=== PATIENT | male | born 1995 | race Hispanic/Latino ===

== ENCOUNTER → 2019-10-28 | Outpatient (CLI) | payer OTHER ==
--- NOTE | 2019-10-28 10:55 | REP ---
MAXILLOFACIAL CT STUDY WITHOUT CONTRAST: HISTORY: Chronic sinusitis. Rhinosinusitis times [address] FINDINGS: The maxillary sinuses are clear. No mucosal changes are seen in the ethmoid or sphenoid sinuses. The frontal sinuses are similarly clear. Mastoid aeration is normal and symmetric. Middle ear cavities appear aerated. Bony nasal septum deviates slightly to the left with a very small beak. Nasal turbinate soft tissues are unremarkable. No nasal polyp is seen. No intraorbital abnormality is seen. The visualized deep facial and intracranial soft tissues are unremarkable. On coronal images there is minimal mucosal thickening at the ostium of each ostiomeatal complex. IMPRESSION: There is minimal mucosal thickening in the ostial region of the OMCs bilaterally. Otherwise negative paranasal sinus CT. The sinuses themselves are clear. Electronically Signed by Tevin Love MD 10/28/2019 11:33 A
== END ==
LOC: M RAD 09:04
DX: J32.9 Chronic sinusitis, unspecified (principal)

== ENCOUNTER 2021-01-23 20:20 | Emergency (ER) | payer OTHER ==
[~2021-01-23] VITALS: Ht 172.7 cm; Wt 67.0 kg
[2021-01-23] MEDS ORDERED: antidepressant (20:40)
[2021-01-23 21:02] LABS: HEMATOCRIT 41.4 % (42.0-52.0); MEAN CORPUSCULAR HEMOGLOBIN 31.3 pg (27.0-33.0); MEAN CORPUSCULAR HGB CONC 33.8 g/dl (32.0-36.5); MEAN CORPUSCULAR VOLUME 92.4 fl (80.0-96.0); PLATELET COUNT, AUTOMATED 216 10^3/uL (150-450); RED BLOOD COUNT 4.48 10^6/uL (4.30-6.10); WHITE BLOOD COUNT 6.5 10^3/uL (4.0-10.0)
[2021-01-23 21:31] LABS: AMPHETAMINES LEVEL URINE NEGATIVE (NEGATIVE); BARBITURATES URINE NEGATIVE (NEGATIVE); BENZODIAZEPINES URINE NEGATIVE (NEGATIVE); CANNABINOIDS URINE POSITIVE (NEGATIVE); COCAINE METABOLITE URINE NEGATIVE (NEGATIVE); METHADONE URINE NEGATIVE (NEGATIVE); OPIATES URINE NEGATIVE (NEGATIVE); PHENCYCLIDINE URINE NEGATIVE (NEGATIVE)
[2021-01-23 21:40] LABS: ACETAMINOPHEN LEVEL < 2.0 UG/ML (10.0-30.0); ALBUMIN 4.5 GM/DL (3.2-5.2); ALT/SGPT 24 U/L (12-78); BILIRUBIN,DIRECT 0.4 MG/DL (0.0-0.2); BILIRUBIN,TOTAL 1.8 MG/DL (0.2-1.0); BLOOD UREA NITROGEN 8 MG/DL (7-18); CALCIUM LEVEL 9.2 MG/DL (8.5-10.1); CARBON DIOXIDE LEVEL 24 MEQ/L (21-32); CHLORIDE LEVEL 106 MEQ/L (98-107); CREATININE FOR GFR 0.85 MG/DL (0.70-1.30); ETHYL ALCOHOL (ETHANOL) 0.004 % (0.000-0.010); GLOMERULAR FILTRATION RATE > 60.0 (>60); GLUCOSE, FASTING 91 MG/DL (70-100); POTASSIUM SERUM 3.5 MEQ/L (3.5-5.1); SALICYLATE LEVEL < 1.7 MG/DL (5.0-30.0); SODIUM LEVEL 140 MEQ/L (136-145); THYROID STIMULATING HORMONE 0.898 uIU/ML (0.358-3.740); TOTAL PROTEIN 7.9 GM/DL (6.4-8.2)
[2021-01-24 00:41] LABS: RSV AMPLIFICATION NEGATIVE (NEGATIVE)
[2021-01-24 09:41] VITALS: BP 136/75
--- NOTE | 2021-01-24 20:49 | ECGEPIP ---
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
== END 2021-01-24 09:44 ==
LOC: M ED 20:20
DX: F33.9 Major depressive disorder, recurrent, unspecified (principal); F41.9 Anxiety disorder, unspecified

== ENCOUNTER 2021-04-25 03:33 | Inpatient (IN) | payer OTHER ==
[~2021-04-25] VITALS: Ht 170.2 cm; Wt 61.8 kg
[~2021-04-25 03:33] MED LIST: antidepressant
[2021-04-25] MEDS ORDERED: LORazepam 2 MG/ML VIAL IM ONE (03:50)
[2021-04-25] MEDS ORDERED: diphenhydrAMINE 50MG/ML VIAL (J1200) IM ONE (03:50)
[2021-04-25] MEDS ORDERED: HALOPERIDOL 5MG/ML VIAL (J1630 PER 1) IM ONE (03:50)
[2021-04-25] MEDS ORDERED: LORazepam 2 MG/ML VIAL As Ordered ONE (03:51)
[2021-04-25 04:11] LABS: BASO % 0.5 % (0.0-1.0); EOS # 0.1 10^3/uL (0.0-0.5); EOS % 1.7 % (0.0-3.0); HEMATOCRIT 38.1 % (42.0-52.0); LYMPH # 2.2 10^3/uL (1.5-5.0); LYMPH % 38.6 % (24.0-44.0); MEAN CORPUSCULAR HEMOGLOBIN 31.6 pg (27.0-33.0); MEAN CORPUSCULAR HGB CONC 34.1 g/dl (32.0-36.5); MEAN CORPUSCULAR VOLUME 92.7 fl (80.0-96.0); MONO # 0.5 10^3/uL (0.0-0.8); MONO % 8.3 % (2.0-8.0); NEUTROPHILS # 2.9 10^3/uL (1.5-8.5); NEUTROPHILS % 50.7 % (36.0-66.0); PLATELET COUNT, AUTOMATED 224 10^3/uL (150-450); RED BLOOD COUNT 4.11 10^6/uL (4.30-6.10); WHITE BLOOD COUNT 5.8 10^3/uL (4.0-10.0)
[2021-04-25 04:51] LABS: ACETAMINOPHEN LEVEL < 2.0 UG/ML (10.0-30.0); ALBUMIN 3.8 GM/DL (3.2-5.2); ALT/SGPT 22 U/L (12-78); BILIRUBIN,DIRECT 0.2 MG/DL (0.0-0.2); BILIRUBIN,TOTAL 0.8 MG/DL (0.2-1.0); BLOOD UREA NITROGEN 11 MG/DL (7-18); CALCIUM LEVEL 8.6 MG/DL (8.5-10.1); CARBON DIOXIDE LEVEL 22 MEQ/L (21-32); CHLORIDE LEVEL 110 MEQ/L (98-107); CPK CREATINE PHOSPHOKINASE 251 U/L (39-308); CREATININE FOR GFR 1.06 MG/DL (0.70-1.30); ETHYL ALCOHOL (ETHANOL) < 0.003 % (0.000-0.010); GLOMERULAR FILTRATION RATE > 60.0 (>60); GLUCOSE, FASTING 96 MG/DL (70-100); POTASSIUM SERUM 4.2 MEQ/L (3.5-5.1); SALICYLATE LEVEL < 1.7 MG/DL (5.0-30.0); SODIUM LEVEL 141 MEQ/L (136-145); THYROID STIMULATING HORMONE 0.496 uIU/ML (0.358-3.740); TOTAL PROTEIN 7.2 GM/DL (6.4-8.2)
[2021-04-25 05:01] LABS: AMPHETAMINES LEVEL URINE NEGATIVE (NEGATIVE); BARBITURATES URINE NEGATIVE (NEGATIVE); BENZODIAZEPINES URINE NEGATIVE (NEGATIVE); CANNABINOIDS URINE NEGATIVE (NEGATIVE); COCAINE METABOLITE URINE NEGATIVE (NEGATIVE); METHADONE URINE NEGATIVE (NEGATIVE); OPIATES URINE NEGATIVE (NEGATIVE); PHENCYCLIDINE URINE NEGATIVE (NEGATIVE)
[2021-04-25] MEDS ORDERED: GABA-283 PO (14:10)
[2021-04-25] MEDS ORDERED: SERO1TAB PO (14:10)
[2021-04-25] MEDS ORDERED: LEXA1TAB PO (14:10)
[2021-04-25] MEDS ORDERED: HOME MED LIST COMPLETE! XX SCH (14:15)
[2021-04-25] MEDS ORDERED: MOM 30ML SUSPENSION UDC PO PRN (19:00)
[2021-04-25] MEDS ORDERED: MAALOX 30 ML SUSP *UDC PO PRN (19:00)
[2021-04-25 19:02] LABS: RSV AMPLIFICATION NEGATIVE (NEGATIVE)
[2021-04-25 20:58] VITALS: BP 113/76
[2021-04-25] MEDS: QUEtiapine FUMARATE 100 MG TAB PO SCH (21:06)
[2021-04-25] MEDS: GABAPENTIN 400MG CAP PO SCH (21:06)
--- NOTE | 2021-04-26 00:10 | ECGEPIP ---
[facility] - ED Test Date: 2021-04-25 Pat Name: TIA BARAJAS Department: Room: - Gender: Male Tattoo Identifier: LG : 1995 Requested By: EMMANUEL Funes Order Number: [id number] Reading MD: Cuauhtemoc Brooks Measurements Intervals [place] Rate: 62 P: 121 AL: 128 QRS: 96 QRSD: 80 T: 117 QT: 426 QTc: 432 Interpretive Statements Sinus rhythm Rightward axis POOR R WAVE PROGRESSION Nonspecific T wave abnormality SIMILAR TO 01/24/21 Electronically Signed on 04-26-2021 0:09:36 EDT by Cuauhtemoc Brooks
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
[2021-04-26] MEDS: GABAPENTIN 400MG CAP PO SCH ×2 (08:22→20:29)
[2021-04-26] MEDS: ESCITALOPRAM OXALATE 10 MG TAB (LEXAPRO) PO SCH (08:22)
--- NOTE | 2021-04-26 13:46 | HPEPDOC ---
General Date of Admission Apr 25, 2021 at 18:57 Date of Service: Apr 26, 2021 Chief Complaint The patient is a 26-year-old male admitted with a reason for visit of Unspecified Psychotic Disorder. 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 He is being examined here today for medical history and physical. Today he denies any complaints. Home Medications Scheduled Escitalopram Oxalate (Lexapro) 10 Mg Tablet, 10 MG PO DAILY, (Reported) Gabapentin (Gabapentin) 400 Mg Capsule, 400 MG PO BID, (Reported) Quetiapine Fumarate (Seroquel) 100 Mg Tablet, 100 MG PO QHS, (Reported) Allergies Coded Allergies: No Known Allergies (Unverified , 01/23/21) Past Medical History Medical History Deviated nasal septum with one-sided blocked nose implant for rhinoplasty and correction of DNS PTSD, bipolar 2, personality disorder, Surgical History [place] tooth extraction Family History Significant Family History: Cancer (Father recently diagnosed with stomach cancer), Diabetes Social History * Smoker: current smoker Alcohol: heavy A-FIB/CHADSVASC A-FIB History Current/History of A-Fib/PAF?: No Age/Risk Factor Scoring CHADSVASC: CHADSVASC Response (Comments) Value Age Risk Factor Age < 65 years old 0 Gender Risk Factor Male 0 Hx of CHF No 0 Hx of HTN No 0 Hx of Stroke/TIA/or VTE No 0 Hx of Diabetes No 0 Hx of Vascular Disease No 0 Total 0 Review of Systems Constitutional: Denies: Chills, Fever, Night Sweats Eyes: Denies: Pain, Vision change ENT: Reports: Sinus Congestion, Post Nasal Drip; Denies: Head Aches, Ear Pain, Dysphagia Skin: Denies: Rash, Lesions, Breakdown Pulmonary: Denies: Dyspnea, Cough Cardiovascular: Denies: Chest Pain, Palpitations, Orthopnea, Paroxysmal Noc. Dyspnea, Lt Headedness Gastrointestinal: Denies: Nausea, Vomiting, Abdominal Pain, Diarrhea Physical Examination General Exam: Positive: Alert, Cooperative, No Acute Distress Eye Exam: Positive: PERRLA, Conjunctiva & lids normal, EOMI; Negative: Sclera icteric ENT Exam: Positive: Atraumatic, Mucous membr. moist/pink, Pharynx Normal Neck Exam: Positive: Supple; Negative: JVD, thyromegaly Chest Exam: Positive: Clear to auscultation, Normal air movement Heart Exam: Positive: Rate Normal, Regular Rhythm, Normal S1, Normal S2; Negative: Murmurs, Rubs Abdomen Exam: Positive: Normal bowel sounds, Soft; Negative: Tenderness, Hepatospenomegaly Extremity Exam: Negative: Clubbing, Cyanosis, Edema Psych Exam: Positive: Memory Intact, Oriented x 3 Vital Signs Vital Signs Date Time Temp Pulse Resp B/P (MAP) Pulse Ox O2 Delivery O2 Flow Rate FiO2 04/25/21 20:58 96.8 74 18 113/76 (88) 100 Room Air Laboratory Data Labs 24H Laboratory Tests 2 04/25/21 18:10: Coronavirus (COVID-19)(PCR) NEGATIVE, Influenza Type A (RT-PCR) NEGATIVE, Influenza Type B (RT-PCR) NEGATIVE, Respiratory Syncytial Virus (PCR) NEGATIVE Assessment/Plan 26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 He is being examined here today for medical history and physical. Psychotic disorder As per psychiatry No active medical issues at this time Plan / VTE VTE Prophylaxis Ordered?: No (Freely ambulatory) Amber Gaviria MD Apr 26, 2021 13:46
[2021-04-26 18:23] VITALS: BP 122/71
[2021-04-26] MEDS: traZODone 50 MG TAB PO PRN (20:29)
[2021-04-26] MEDS: QUEtiapine FUMARATE 100 MG TAB PO SCH (20:29)
[2021-04-26] MEDS: ARIPiprazole 10 MG TAB PO SCH (20:29)
[2021-04-26] MEDS ORDERED: GABAPENTIN 400MG CAP PO SCH (21:00)
[2021-04-26] MEDS ORDERED: QUEtiapine FUMARATE 100 MG TAB PO SCH (21:00)
[2021-04-27] MEDS: ESCITALOPRAM OXALATE 10 MG TAB (LEXAPRO) PO SCH (09:38)
[2021-04-27] MEDS: GABAPENTIN 400MG CAP PO SCH ×2 (09:39→20:07)
--- NOTE | 2021-04-27 15:14 | MHIPNPDOC ---
[facility] Progress Note Progress Note DATE OF SERVICE: 04/27/21 HISTORY: The patient says before coming to [facility] he was admitted to [facility]. He says he felt really sick since April last year, he was very scared, very sad and very angry because he was having problems with his ex girlfriend, he felt as if his co workers didn't like him. He didn't get help because he didn't have transportation but his boss, apparently provided with a truck and he was able to go to [facility]. Apparently they asked him if he wanted to be on antidepressants. He agreed to take them but they gave him an appointment to see him a month after. He was at [facility] for 23 days but he says he ended coming to [facility] because he felt the government was against him. The patient seems to be disorganized, the information he provided is probably not very reliable because he appears psychotic VITAL SIGNS: See below. NEW TEST RESULTS: See below CURRENT MEDICATIONS: See below. MENTAL STATUS EXAMINATION: General Appearance: hospital scrubs/clothing, hygiene is fair Build: thin Demeanor: mistrustful, anxious, fidgety Eye Contact: avoidant at times Activity: anxious Behavior: cooperative Speech: clear, rapid, spontaneous Mood: anxious Affect: anxious, disorganized Thought Process: disorganized Thought Content (Delusions): Paranoid, bizarre and grandiose delusions Thought Content (Other): preoccupied, appears paranoid Thought Content (Aggressive): none reported Perception (Hallucinations): auditory Perception (Other): illusions Cognition (Impairment of): attention/concentration Cognition(Intelligence Est.): average Oriented: Awake, Alert, Oriented times three Insight: poor Judgment: Poor Psychosis: Psychotic Perceptions Diagnoses Unspecified psychotic disorder versus bipolar disorder, unspecified ASSESSMENT: He's disorganized, circumstantial, tangential, has some bizarre delusions. MANAGEMENT PLAN: Continue with current treatment plan TIME SPENT: 20 minutes. Vital Signs Vital Signs Date Time Temp Pulse Resp B/P (MAP) Pulse Ox O2 Delivery O2 Flow Rate FiO2 04/26/21 18:23 97.1 101 16 122/71 (88) 04/25/21 20:58 100 Room Air Current Medications Current Medications Medications (Trade) Dose Ordered Sig/Jonny Route PRN Reason Start Time Stop Time Status Last Admin Dose Admin Acetaminophen (Tylenol Tab) 650 mg Q6HP PRN PO HEADACHE or MILD DISCOMFORT 04/25/21 19:00 Al Hydrox/Mg Hydrox/Simethicone (Mylanta) 30 ml Q4HP PRN PO HEARTBURN/INDIGESTION 04/25/21 19:00 Aripiprazole (AbiLIFY) 5 mg DAILY PO 04/26/21 09:00 04/27/21 09:40 Aripiprazole (AbiLIFY) 10 mg QHS PO 04/26/21 21:00 04/26/21 20:29 Escitalopram Oxalate (Lexapro) 10 mg DAILY PO 04/26/21 09:00 04/27/21 09:38 Gabapentin (Neurontin) 400 mg BID PO 04/25/21 21:00 04/27/21 09:39 Gabapentin (Neurontin) 400 mg BID PO 04/26/21 21:00 UNV Home Med (Home Med List Complete!) ASDIRECTED XX 04/25/21 14:15 04/25/21 14:16 DC Magnesium Hydroxide (Milk Of Magnesia) 30 ml DAILYPRN PRN PO CONSTIPATION 04/25/21 19:00 Quetiapine Fumarate (SEROquel) 100 mg QHS PO 04/25/21 21:00 04/26/21 20:29 Quetiapine Fumarate (SEROquel) 100 mg QHS PO 04/26/21 21:00 Cancel Trazodone HCl (Desyrel) 50 mg QHSP PRN PO INSOMNIA 04/25/21 19:00 04/26/21 20:29 Allergies Coded Allergies: No Known Allergies (Unverified , 01/23/21) WIN COREAS MD Apr 27, 2021 14:14
[2021-04-27 19:03] VITALS: BP 128/84
[2021-04-27] MEDS: QUEtiapine FUMARATE 100 MG TAB PO SCH (20:06)
[2021-04-27] MEDS: traZODone 50 MG TAB PO PRN (20:07)
[2021-04-27] MEDS: ARIPiprazole 10 MG TAB PO SCH (21:00)
[2021-04-28 06:00] VITALS: BP 118/60
[2021-04-28] MEDS: GABAPENTIN 400MG CAP PO SCH ×2 (08:08→20:58)
[2021-04-28] MEDS: ESCITALOPRAM OXALATE 10 MG TAB (LEXAPRO) PO SCH (08:08)
--- NOTE | 2021-04-28 12:26 | MHIPNPDOC ---
[facility] Progress Note Progress Note DATE OF SERVICE: 04/28/21 HISTORY: The patient says before coming to [facility] he was admitted to [facility]. He says he felt really sick since April last year, he was very scared, very sad and very angry because he was having problems with his ex girlfriend, he felt as if his co workers didn't like him. He didn't get help because he didn't have transportation but his boss, apparently provided with a truck and he was able to go to [facility]. Apparently they asked him if he wanted to be on antidepressants. He agreed to take them but they gave him an appointment to see him a month after. He was at [facility] for 23 days but he says he ended coming to [facility] because he felt the government was against him. The patient seems to be disorganized, the information he provided is probably not very reliable because he appears psychotic VITAL SIGNS: See below. NEW TEST RESULTS: See below CURRENT MEDICATIONS: See below. MENTAL STATUS EXAMINATION: General Appearance: hospital scrubs/clothing, hygiene is fair Build: thin Demeanor: mistrustful, anxious, fidgety Eye Contact: avoidant Activity: calm, cooperative Behavior: cooperative Speech: clear, rapid, spontaneous Mood: anxious Affect: congruent with mood Thought Process: disorganized Thought Content (Delusions): Paranoid, bizarre and grandiose delusions Thought Content (Other): preoccupied, paranoid, fixated on his nose appearance and not being able to breath properly Thought Content (Aggressive): none reported Perception (Hallucinations): auditory Perception (Other): illusions Cognition (Impairment of): attention/concentration Cognition(Intelligence Est.): average Oriented: Awake, Alert, Oriented times three Insight: poor Judgment: Poor Psychosis: Psychotic Perceptions Diagnoses Unspecified psychotic disorder versus bipolar disorder, unspecified ASSESSMENT: He says he was able to sleep well last night, he thinks this is because he didn't receive Abilify last night but he says he didn't want to take it, he claims it causes sleep paralysis and he says he slept really well with other medications. He continues to be paranoid, especially about his higher ups in the [employer]. He is grandiose. MANAGEMENT PLAN: Continue with current treatment plan TIME SPENT: 20 minutes. Vital Signs Vital Signs Date Time Temp Pulse Resp B/P (MAP) Pulse Ox O2 Delivery O2 Flow Rate FiO2 04/28/21 06:00 97.9 71 18 118/60 (79) 99 04/25/21 20:58 Room Air Current Medications Current Medications Medications (Trade) Dose Ordered Sig/Jonny Route PRN Reason Start Time Stop Time Status Last Admin Dose Admin Acetaminophen (Tylenol Tab) 650 mg Q6HP PRN PO HEADACHE or MILD DISCOMFORT 04/25/21 19:00 Al Hydrox/Mg Hydrox/Simethicone (Mylanta) 30 ml Q4HP PRN PO HEARTBURN/INDIGESTION 04/25/21 19:00 Aripiprazole (AbiLIFY) 5 mg DAILY PO 04/26/21 09:00 04/28/21 08:08 Aripiprazole (AbiLIFY) 10 mg QHS PO 04/26/21 21:00 04/26/21 20:29 Escitalopram Oxalate (Lexapro) 10 mg DAILY PO 04/26/21 09:00 04/28/21 08:08 Gabapentin (Neurontin) 400 mg BID PO 04/25/21 21:00 04/28/21 08:08 Gabapentin (Neurontin) 400 mg BID PO 04/26/21 21:00 UNV Home Med (Home Med List Complete!) ASDIRECTED XX 04/25/21 14:15 04/25/21 14:16 DC Magnesium Hydroxide (Milk Of Magnesia) 30 ml DAILYPRN PRN PO CONSTIPATION 04/25/21 19:00 Quetiapine Fumarate (SEROquel) 100 mg QHS PO 04/25/21 21:00 04/27/21 20:06 Quetiapine Fumarate (SEROquel) 100 mg QHS PO 04/26/21 21:00 Cancel Trazodone HCl (Desyrel) 50 mg QHSP PRN PO INSOMNIA 04/25/21 19:00 04/27/21 20:07 Allergies Coded Allergies: No Known Allergies (Unverified , 01/23/21) WIN COREAS MD Apr 28, 2021 12:26
[2021-04-28 18:33] VITALS: BP 149/70
[2021-04-28] MEDS: ARIPiprazole 10 MG TAB PO SCH (20:57)
[2021-04-28] MEDS: traZODone 50 MG TAB PO PRN (21:27)
[2021-04-28] MEDS: QUEtiapine FUMARATE 100 MG TAB PO SCH (21:27)
[2021-04-29] MEDS: GABAPENTIN 400MG CAP PO SCH ×2 (08:47→20:17)
[2021-04-29] MEDS: ESCITALOPRAM OXALATE 10 MG TAB (LEXAPRO) PO SCH (08:47)
[2021-04-29] MEDS: NYSTATIN CREAM 15 GM TOP SCH ×2 (12:12→20:17)
--- NOTE | 2021-04-29 12:16 | REP ---
INDICATION: Pain Left thumb. COMPARISON: None. TECHNIQUE: Two views of the left hand are provided. FINDINGS: AP and lateral views of the left hand demonstrate normal bones, joints, and soft tissues. No fracture or subluxation is seen. No opaque foreign body noted. IMPRESSION: Negative left hand series. <Electronically signed by Mac Love > 04/29/21 1156
--- NOTE | 2021-04-29 12:59 | MHIPNPDOC ---
[facility] Progress Note Progress Note DATE OF SERVICE: 04/29/21 HISTORY: Patient is a 26 -year-old , male, who reports past psychiatric history of PTSD, bipolar 2, personality disorder, does admission to [place] in January 2021 per chart review, also reports admission to [place], but refuses to provide a date because that would be providing too much information which she reported to [facility], but does not know why he was brought to the ER, per chart review was brought by MPs and EMS. On initial interview states "everybody here is watching me a second [employer] turns on to calm me down, I feel it squeeze in my groin". 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 There is 3 other Cody's who when advertise. I have a lot of wires and this is why I am told everything. Feeling everybody is watching me on the unit, and many other patients. I scott here" my friend Ester's house in the [employer] blocked the road, consider escalates driving by and I heard noises, I was just going there to tell her about my new book. When reviewing psychiatric history and medications states he is done with the interview and that it is confidential. Currently does not answer questions about safety, thoughts of harming others is denied. Denies suicidal or homicidal ideation, or drug use. Per chart review from [facility] reach out to [facility], yesterday patient went to the [facility] and stated he was waiting for a ride, parked his vehicle there, then approached a guard and was acting bizarre, [facility] picked him up and took him back to the [facility], there he reported chest pain and called EMS himself, per chart review has a history of substance abuse and alcohol abuse and is enrolled in [facility] program. Had been drinking despite treatments and has received a DUI has been chaptered on the . Interval: Patient apologizes stating, " when we first met in knowing her the doctor", despite this being explained to the patient at the time. Appears to have some behavioral indiscretion requiring redirection in the social media per nursing staff. Reportedly also has sudden changes in behavior with redirection. Patient states he has been refusing his nighttime Abilify due to it worsening his racing thoughts. Increased his daytime dose to 10 mg, as he reports no morning dose does not affect him negatively, states has helped cleared his thoughts, denies acute physical complaints. Per chart review was reporting groin chafing so was given nystatin cream. VITAL SIGNS: See below. NEW TEST RESULTS: None CURRENT MEDICATIONS: See below. MENTAL STATUS EXAMINATION: General Appearance: hospital scubs/clothing Build: thin Demeanor: mistrustful, guarded, very figety Eye Contact: avoidant, intense, other (Switches between avoidant and intense) Activity: anxious Behavior: More cooperative, resistant Speech: clear, rapid, spontaneous Mood: "okay I guess" Affect: labile, less anxious, less disorganized Thought Process: derailment, other (Disorganized) Thought Content (Delusions): grandiose (Wanted to save the children, as a new book that is going to be really important), persecutory, bizarre (Reports multiple fake Kevins), paranoia, delusions Thought Content (Other): preoccupied, guarded, internal-stimuli, appears paranoid Thought Content (Aggressive): none reported Perception (Hallucinations): auditory Perception (Other): illusions Cognition (Impairment of): attention/concentration Cognition(Intelligence Est.): average Oriented: Awake, Alert, Oriented times three Insight: Improvement Judgment: Fair Psychosis: Reduced psychotic Perceptions DIAGNOSES: Unspecified psychotic disorder versus bipolar disorder, unspecified Rule out malingering or factitious disorder ASSESSMENT: Patient reports decreased disorganized thought process with the daytime Abilify, but reports leads to racing thoughts in the evening and prefers to take his Seroquel 100 mg for sleep as this "puts me out completely until morning". Denies suicidal ideation or homicidal ideation, and appears ambivalent about stay on the inpatient unit. Per collateral from social work reach out with command, report patient acts oddly prior to hearings for lack of discipline. Patient reports tolerating Abilify and other medications without side effects if taken during the day, apart from Seroquel which she reports helps with sleep. MANAGEMENT PLAN: Patient requires further stay for acute stabilization, on further interview will try to establish if there is any person again from being on the inpatient unit, also to assess if there is benefit from medications for any psychiatric symptoms including disorganized thought process and psychosis. Morning dose of Abilify was increased from 5 to 10 mg at nighttime dose was discontinued, does not want Seroquel increased. TIME SPENT: 15 minutes. Vital Signs Vital Signs Date Time Temp Pulse Resp B/P (MAP) Pulse Ox O2 Delivery O2 Flow Rate FiO2 04/28/21 18:33 99.0 101 18 149/70 (96) 04/28/21 06:00 99 04/25/21 20:58 Room Air Current Medications Current Medications Medications (Trade) Dose Ordered Sig/Jonny Route PRN Reason Start Time Stop Time Status Last Admin Dose Admin Acetaminophen (Tylenol Tab) 650 mg Q6HP PRN PO HEADACHE or MILD DISCOMFORT 04/25/21 19:00 Al Hydrox/Mg Hydrox/Simethicone (Mylanta) 30 ml Q4HP PRN PO HEARTBURN/INDIGESTION 04/25/21 19:00 Aripiprazole (AbiLIFY) 5 mg DAILY PO 04/26/21 09:00 04/29/21 09:09 DC 04/29/21 08:47 Aripiprazole (AbiLIFY) 10 mg DAILY PO 04/30/21 09:00 Aripiprazole (AbiLIFY) 10 mg QHS PO 04/26/21 21:00 04/29/21 09:09 DC 04/26/21 20:29 Escitalopram Oxalate (Lexapro) 10 mg DAILY PO 04/26/21 09:00 04/29/21 08:47 Gabapentin (Neurontin) 400 mg BID PO 04/25/21 21:00 04/29/21 08:47 Gabapentin (Neurontin) 400 mg BID PO 04/26/21 21:00 UNV Home Med (Home Med List Complete!) ASDIRECTED XX 04/25/21 14:15 04/25/21 14:16 DC Magnesium Hydroxide (Milk Of Magnesia) 30 ml DAILYPRN PRN PO CONSTIPATION 04/25/21 19:00 Nystatin (Mycostatin) 1 dose BID TOP 04/29/21 12:00 04/29/21 12:12 Quetiapine Fumarate (SEROquel) 100 mg QHS PO 04/25/21 21:00 04/28/21 21:27 Quetiapine Fumarate (SEROquel) 100 mg QHS PO 04/26/21 21:00 Cancel Trazodone HCl (Desyrel) 50 mg QHSP PRN PO INSOMNIA 04/25/21 19:00 04/28/21 21:27 Allergies Coded Allergies: No Known Allergies (Unverified , 01/23/21) RENE TALBOT MD Apr 29, 2021 12:59
[2021-04-29 16:25] VITALS: BP 117/72
[2021-04-29] MEDS: traZODone 50 MG TAB PO PRN (20:16)
[2021-04-29] MEDS: QUEtiapine FUMARATE 100 MG TAB PO SCH (20:16)
[2021-04-30 05:55] VITALS: BP 134/58
[2021-04-30] MEDS: ESCITALOPRAM OXALATE 10 MG TAB (LEXAPRO) PO SCH (08:23)
[2021-04-30] MEDS: GABAPENTIN 400MG CAP PO SCH ×2 (08:23→20:23)
[2021-04-30] MEDS: ARIPiprazole 10 MG TAB PO SCH (08:23)
[2021-04-30] MEDS: NYSTATIN CREAM 15 GM TOP SCH ×2 (08:23→20:22)
--- NOTE | 2021-04-30 14:39 | MHIPNPDOC ---
[facility] Progress Note Progress Note DATE OF SERVICE: 04/30/21 HISTORY: Patient is a 26 -year-old , male, who reports past psychiatric history of PTSD, bipolar 2, personality disorder, does admission to [place] in January 2021 per chart review, also reports admission to [place], but refuses to provide a date because that would be providing too much information which she reported to [facility], but does not know why he was brought to the ER, per chart review was brought by MPs and EMS. On initial interview states "everybody here is watching me a second [employer] turns on to calm me down, I feel it squeeze in my groin". 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 There is 3 other Cody's who when advertise. I have a lot of wires and this is why I am told everything. Feeling everybody is watching me on the unit, and many other patients. I scott here" my friend Ester's house in the [employer] blocked the road, consider escalates driving by and I heard noises, I was just going there to tell her about my new book. When reviewing psychiatric history and medications states he is done with the interview and that it is confidential. Currently does not answer questions about safety, thoughts of harming others is denied. Denies suicidal or homicidal ideation, or drug use. Per chart review from [facility] reach out to [facility], yesterday patient went to the [facility] and stated he was waiting for a ride, parked his vehicle there, then approached a guard and was acting bizarre, [facility] picked him up and took him [facility], there he reported chest pain and called EMS himself, per chart review has a history of substance abuse and alcohol abuse and is enrolled in [facility] program. Had been drinking despite treatments and has received a DUI has been chaptered on the . Interval: Patient agrees to starting Depakote 150 mg ER daily, made aware of common rare side effects. Agrees to continuing daily Abilify. Was seen walking around the unit with the Bible preaching to other patients, per nursing has a lot of behavioral indiscretion requiring redirection, intrusive behavior in the social milieu. Patient states continues to have racing thoughts despite taking Abilify in the evening, in context of continuing SSRI. VITAL SIGNS: See below. NEW TEST RESULTS: None CURRENT MEDICATIONS: See below. MENTAL STATUS EXAMINATION: General Appearance: hospital scubs/clothing Build: thin Demeanor: mistrustful, guarded, very figety Eye Contact: avoidant, intense, other (Switches between avoidant and intense) Activity: anxious Behavior: More cooperative, resistant Speech: clear, rapid, spontaneous Mood: "I am all right doc" Affect: labile, anxious, elevated at times Thought Process: derailment, other (Disorganized) Thought Content (Delusions): grandiose (Wanted to save the children, as a new book that is going to be really important), persecutory, bizarre (Reports multiple fake Kevins), paranoia, delusions Thought Content (Other): preoccupied, guarded, internal-stimuli, appears p aranoid Thought Content (Aggressive): none reported Perception (Hallucinations): auditory Perception (Other): illusions Cognition (Impairment of): attention/concentration Cognition(Intelligence Est.): average Oriented: Awake, Alert, Oriented times three Insight: Improving, fair Judgment: Fair Psychosis: Reduced psychotic Perceptions DIAGNOSES: Unspecified psychotic disorder versus bipolar disorder, unspecified Rule out malingering or factitious disorder ASSESSMENT: Patient continues to have labile mood, mostly elevated at times, walking around the unit talking to many patients, preaching with Bible. Per collateral obtained by social work he tends to do this prior to potential discharge hearings. Despite this patient feels that he has racing thoughts, trouble sleep and is agreeable to medication changes to help address this. MANAGEMENT PLAN: Start Depakote 750 mg ER, ordered Depakote level for , decrease Lexapro down to 5 mg p.o. daily, continue Abilify 10 mg daily. Seroquel 100 mg nightly. Possible discharge or Thursday if symptoms continue to improve. D/C trazodone nightly. TIME SPENT: 25 minutes. Vital Signs Vital Signs Date Time Temp Pulse Resp B/P (MAP) Pulse Ox O2 Delivery O2 Flow Rate FiO2 04/30/21 05:55 97.2 65 16 134/58 (83) 97 Room Air Current Medications Current Medications Medications (Trade) Dose Ordered Sig/Jonny Route PRN Reason Start Time Stop Time Status Last Admin Dose Admin Acetaminophen (Tylenol Tab) 650 mg Q6HP PRN PO HEADACHE or MILD DISCOMFORT 04/25/21 19:00 Al Hydrox/Mg Hydrox/Simethicone (Mylanta) 30 ml Q4HP PRN PO HEARTBURN/INDIGESTION 04/25/21 19:00 Aripiprazole (AbiLIFY) 5 mg DAILY PO 04/26/21 09:00 04/29/21 09:09 DC 04/29/21 08:47 Aripiprazole (AbiLIFY) 10 mg DAILY PO 04/30/21 09:00 04/30/21 08:23 Aripiprazole (AbiLIFY) 10 mg QHS PO 04/26/21 21:00 04/29/21 09:09 DC 04/26/21 20:29 Divalproex Sodium (Depakote Er) 750 mg QHS PO 04/30/21 21:00 Escitalopram Oxalate (Lexapro) 5 mg DAILY PO 05/01/21 09:00 Escitalopram Oxalate (Lexapro) 10 mg DAILY PO 04/26/21 09:00 04/30/21 09:43 DC 04/30/21 08:23 Gabapentin (Neurontin) 400 mg BID PO 04/25/21 21:00 04/30/21 08:23 Gabapentin (Neurontin) 400 mg BID PO 04/26/21 21:00 UNV Home Med (Home Med List Complete!) ASDIRECTED XX 04/25/21 14:15 04/25/21 14:16 DC Magnesium Hydroxide (Milk Of Magnesia) 30 ml DAILYPRN PRN PO CONSTIPATION 04/25/21 19:00 Nystatin (Mycostatin) 1 dose BID TOP 04/29/21 12:00 04/30/21 08:23 Quetiapine Fumarate (SEROquel) 100 mg QHS PO 04/25/21 21:00 04/29/21 20:16 Quetiapine Fumarate (SEROquel) 100 mg QHS PO 04/26/21 21:00 Cancel Trazodone HCl (Desyrel) 50 mg QHSP PRN PO INSOMNIA 04/25/21 19:00 04/29/21 20:16 Allergies Coded Allergies: No Known Allergies (Unverified , 01/23/21) RENE TALBOT MD Apr 30, 2021 14:39
[2021-04-30 16:07] VITALS: BP 110/58
[2021-04-30] MEDS: DIVALPROEX 250MG *ER* TAB PO SCH (20:23)
[2021-04-30] MEDS: QUEtiapine FUMARATE 100 MG TAB PO SCH (20:23)
[2021-05-01 06:49] VITALS: BP 165/81
[2021-05-01] MEDS: NYSTATIN CREAM 15 GM TOP SCH ×3 (08:06→21:28)
[2021-05-01] MEDS: GABAPENTIN 400MG CAP PO SCH ×2 (08:06→20:03)
[2021-05-01] MEDS: ARIPiprazole 10 MG TAB PO SCH (08:06)
[2021-05-01] MEDS ORDERED: ESCITALOPRAM OXALATE 5MG TABLET (LEXAPRO) PO SCH (09:00)
--- NOTE | 2021-05-01 10:16 | MHIPNPDOC ---
[facility] Progress Note Progress Note DATE OF SERVICE: 05/01/21 HISTORY: Patient is a 26 -year-old , male, who reports past psychiatric history of PTSD, bipolar 2, personality disorder, does admission to [place] in January 2021 per chart review, also reports admission to [place], but refuses to provide a date because that would be providing too much information which she reported to [facility], but does not know why he was brought to the ER, per chart review was brought by MPs and EMS. On initial interview states "everybody here is watching me a second [employer] turns on to calm me down, I feel it squeeze in my groin". 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 There is 3 other Cody's who when advertise. I have a lot of wires and this is why I am told everything. Feeling everybody is watching me on the unit, and many other patients. I scott here" my friend Ester's house in the [employer] blocked the road, consider escalates driving by and I heard noises, I was just going there to tell her about my new book. When reviewing psychiatric history and medications states he is done with the interview and that it is confidential. Currently does not answer questions about safety, thoughts of harming others is denied. Denies suicidal or homicidal ideation, or drug use. Per chart review from [facility] reach out to [facility], yesterday patient went to the [facility] and stated he was waiting for a ride, parked his vehicle there, then approached a guard and was acting bizarre, [facility] picked him up and took him back to the [facility], there he reported chest pain and called EMS himself, per chart review has a history of substance abuse and alcohol abuse and is enrolled in [facility] program. Had been drinking despite treatments and has received a DUI has been chaptered on the . Interval: Reports" darkening that medication improvement on that Depakote is the one for me", reports reduced racing thoughts, no longer reports being over energized. Denies side effects or acute physical complaints. Reports mood to be "okay". Discussed possible discharge tomorrow if continues to improve, patient is agreeable. Reports with his current medication regimen "I sleep well, I am out at night, but feel good in the morning". VITAL SIGNS: See below. NEW TEST RESULTS: None CURRENT MEDICATIONS: See below. MENTAL STATUS EXAMINATION: General Appearance: hospital scubs/clothing Build: thin Demeanor: Calm, very figety Eye Contact: Improved Activity: Less anxious Behavior: More cooperative, resistant Speech: clear, rapid, spontaneous Mood: "okay" Affect: Less labile, mildly elevated to euthymic Thought Process: Linear and logical Thought Content (Delusions): No delusions Thought Content (Other): No longer paranoid or disorganized Thought Content (Aggressive): none reported Perception (Hallucinations): Denies Perception (Other): illusions Cognition (Impairment of): attention/concentration Cognition(Intelligence Est.): average Oriented: Awake, Alert, Oriented times three Insight: fair Judgment: Fair Psychosis: Denies DIAGNOSES: Unspecified psychotic disorder versus bipolar disorder, unspecified Rule out malingering or factitious disorder ASSESSMENT: Patient continues to improve with only mildly elevated to euthymic mood, no longer pacing around the hallways or reporting having hallucinations or delusions, does not appear disorganized, laughs and makes appropriate jokes. Possible discharge tomorrow if continues to improve on medications which she reports he tolerates well without side effects. MANAGEMENT PLAN: Continue Depakote 750 mg ER, ordered Depakote level for today, continue Lexapro down to 5 mg p.o. daily, continue Abilify 10 mg daily. Sero quel 100 mg nightly. Possible discharge tomorrow if symptoms continue to improve. TIME SPENT: 20 minutes. Vital Signs Vital Signs Date Time Temp Pulse Resp B/P (MAP) Pulse Ox O2 Delivery O2 Flow Rate FiO2 05/01/21 06:49 98.5 63 20 165/81 (109) 99 Room Air Current Medications Current Medications Medications (Trade) Dose Ordered Sig/Jonny Route PRN Reason Start Time Stop Time Status Last Admin Dose Admin Acetaminophen (Tylenol Tab) 650 mg Q6HP PRN PO HEADACHE or MILD DISCOMFORT 04/25/21 19:00 Al Hydrox/Mg Hydrox/Simethicone (Mylanta) 30 ml Q4HP PRN PO HEARTBURN/INDIGESTION 04/25/21 19:00 Aripiprazole (AbiLIFY) 5 mg DAILY PO 04/26/21 09:00 04/29/21 09:09 DC 04/29/21 08:47 Aripiprazole (AbiLIFY) 10 mg DAILY PO 04/30/21 09:00 05/01/21 08:06 Aripiprazole (AbiLIFY) 10 mg QHS PO 04/26/21 21:00 04/29/21 09:09 DC 04/26/21 20:29 Divalproex Sodium (Depakote Er) 750 mg QHS PO 04/30/21 21:00 04/30/21 20:23 Escitalopram Oxalate (Lexapro) 5 mg DAILY PO 05/01/21 09:00 05/01/21 08:06 Escitalopram Oxalate (Lexapro) 10 mg DAILY PO 04/26/21 09:00 04/30/21 09:43 DC 04/30/21 08:23 Gabapentin (Neurontin) 400 mg BID PO 04/25/21 21:00 05/01/21 08:06 Gabapentin (Neurontin) 400 mg BID PO 04/26/21 21:00 UNV Home Med (Home Med List Complete!) ASDIRECTED XX 04/25/21 14:15 04/25/21 14:16 DC Magnesium Hydroxide (Milk Of Magnesia) 30 ml DAILYPRN PRN PO CONSTIPATION 04/25/21 19:00 Nystatin (Mycostatin) 1 dose BID TOP 04/29/21 12:00 05/01/21 08:06 Quetiapine Fumarate (SEROquel) 100 mg QHS PO 04/25/21 21:00 04/30/21 20:23 Quetiapine Fumarate (SEROquel) 100 mg QHS PO 04/26/21 21:00 Cancel Trazodone HCl (Desyrel) 50 mg QHSP PRN PO INSOMNIA 04/25/21 19:00 04/30/21 14:40 DC 04/29/21 20:16 Allergies Coded Allergies: No Known Allergies (Unverified , 01/23/21) RENE TALBOT MD May 01, 2021 10:16
[2021-05-01 16:15] VITALS: BP 150/68
[2021-05-01] MEDS: QUEtiapine FUMARATE 100 MG TAB PO SCH (20:03)
[2021-05-01] MEDS: DIVALPROEX 250MG *ER* TAB PO SCH (20:03)
[2021-05-02 07:07] VITALS: BP 141/77
[2021-05-02] MEDS: ARIPiprazole 10 MG TAB PO SCH (08:22)
[2021-05-02] MEDS: GABAPENTIN 400MG CAP PO SCH ×2 (08:22→20:02)
[2021-05-02] MEDS: NYSTATIN CREAM 15 GM TOP SCH ×4 (08:23→20:04)
[2021-05-02] MEDS: ACETAMINOPHEN TAB 650MG DOSE (2X325MG) PO PRN (10:19)
--- NOTE | 2021-05-02 11:54 | MHIPNPDOC ---
[facility] Progress Note Progress Note DATE OF SERVICE: 05/02/21 HISTORY: Patient is a 26 -year-old , male, who reports past psychiatric history of PTSD, bipolar 2, personality disorder, does admission to [facility] in January 2021 per chart review, also reports admission to [facility], but refuses to provide a date because that would be providing too much information which she reported to [facility], but does not know why he was brought to the ER, per chart review was brought by MPs and EMS. On initial interview states "everybody here is watching me a second [employer] turns on to calm me down, I feel it squeeze in my groin". 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 There is 3 other Cody's who when advertise. I have a lot of wires and this is why I am told everything. Feeling everybody is watching me on the unit, and many other patients. 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 When reviewing psychiatric history and medications states he is done with the interview and that it is confidential. Currently does not answer questions about safety, thoughts of harming others is denied. Denies suicidal or homicidal ideation, or drug use. Per chart review from [facility] reach out to [facility], yesterday patient went to the [facility] [employer] [facility] and stated he was waiting for a ride, parked his vehicle there, then approached a guard and was acting bizarre, [facility] picked him up and took him back [facility] the [facility], there he reported chest pain and called EMS himself, per chart review has a history of substance abuse and alcohol abuse and is enrolled in [facility] program. Had been drinking despite treatments and has received a DUI has been chaptered on the . Interval: Charts reviewed, has been going to groups, was noted by nursing that he was pacing otherwise not disruptive on the social milieu. Patient states that he has scary dreams sometimes, has some mildly elevated mood but is able to be calm during interview, reports good response to medication, improved sleep, was denying suicidal ideation and homicidal ideation initially and was originally slated to possibly leave today. However was made aware that he left a letter thinking he would be welcomed and open arms command by mom 11-12 people, so a meeting was arranged with social science teacher to assess this letter and what he will do once he leaves the unit, was made aware that there is a high chance of possible discharge. States he has some improved insight into this but that he believes he will likely be able to continue, has not confronted this previously or thought about it for extended period of time and states that if they did not discharge him "I would go kill myself", asked about future plans says he wants to go live [facility] and does not seem to have clear plans or future oriented ideas. Was made aware he will need an extended stay. Plan to increase Depakote dose as his level is within normal limits, middle range, see below. Denies acute physical complaints or medication side effects. VITAL SIGNS: See below. NEW TEST RESULTS: Depakote level 70.2 within normal limits CURRENT MEDICATIONS: See below. MENTAL STATUS EXAMINATION: General Appearance: hospital scubs/clothing Build: thin Demeanor: Calm, very figety Eye Contact: Improved Activity: Less anxious Behavior: More cooperative, resistant Speech: clear, rapid, spontaneous Mood: "Pretty good, pretty good" Affect: Less labile, mildly elevated to euthymic Thought Process: Circumstantial Thought Content (Delusions): No delusions Thought Content (Other): No longer paranoid or disorganized Thought Content (Aggressive): none reported, reports suicidal ideation in context of possible discharge from the [employer] Perception (Hallucinations): Denies Perception (Other): illusions Cognition (Impairment of): attention/concentration Cognition(Intelligence Est.): average Oriented: Awake, Alert, Oriented times three Insight: fair Judgment: Fair Psychosis: Denies DIAGNOSES: Bipolar disorder, type II, recent episode hypomanic Rule out malingering or factitious disorder ASSESSMENT: Patient continues to improve with regards to mood stabilization in with Depakote, reports he tolerates the medication well and it evens out his energy and thought process, however continues to have suicidal thoughts in context of possible discharge, agreeable to discussing some of these thoughts in group and processing his current situation as he is not confronted these thoughts recently and now with improved mental clarity is more willing to do so. Needs continued stay to maintain safety in context of suicidal ideation. MANAGEMENT PLAN: Increase Depakote from 750 to 1000 mg ER, Depakote level within normal limits, will order another Depakote level in 2 days, Lexapro is discontinued, continue Abilify 10 mg daily. Seroquel 100 mg nightly. Will need extended stay to improve stability. TIME SPENT: 20 minutes. Vital Signs Vital Signs Date Time Temp Pulse Resp B/P (MAP) Pulse Ox O2 Delivery O2 Flow Rate FiO2 05/02/21 07:07 98.1 85 16 141/77 (98) 98 Room Air Current Medications Current Medications Medications (Trade) Dose Ordered Sig/Jonny Route PRN Reason Start Time Stop Time Status Last Admin Dose Admin Acetaminophen (Tylenol Tab) 650 mg Q6HP PRN PO HEADACHE or MILD DISCOMFORT 04/25/21 19:00 05/02/21 10:19 Al Hydrox/Mg Hydrox/Simethicone (Mylanta) 30 ml Q4HP PRN PO HEARTBURN/INDIGESTION 04/25/21 19:00 Aripiprazole (AbiLIFY) 5 mg DAILY PO 04/26/21 09:00 04/29/21 09:09 DC 04/29/21 08:47 Aripiprazole (AbiLIFY) 10 mg DAILY PO 04/30/21 09:00 05/02/21 08:22 Aripiprazole (AbiLIFY) 10 mg QHS PO 04/26/21 21:00 04/29/21 09:09 DC 04/26/21 20:29 Divalproex Sodium (Depakote Er) 750 mg QHS PO 04/30/21 21:00 05/02/21 09:54 DC 05/01/21 20:03 Divalproex Sodium (Depakote Er) 1,000 mg QHS PO 05/02/21 21:00 Escitalopram Oxalate (Lexapro) 5 mg DAILY PO 05/01/21 09:00 05/01/21 11:27 DC 05/01/21 08:06 Escitalopram Oxalate (Lexapro) 10 mg DAILY PO 04/26/21 09:00 04/30/21 09:43 DC 04/30/21 08:23 Gabapentin (Neurontin) 400 mg BID PO 04/25/21 21:00 05/02/21 08:22 Gabapentin (Neurontin) 400 mg BID PO 04/26/21 21:00 UNV Home Med (Home Med List Complete!) ASDIRECTED XX 04/25/21 14:15 04/25/21 14:16 DC Magnesium Hydroxide (Milk Of Magnesia) 30 ml DAILYPRN PRN PO CONSTIPATION 04/25/21 19:00 Nystatin (Mycostatin) 1 dose BID TOP 04/29/21 12:00 05/02/21 09:00 Quetiapine Fumarate (SEROquel) 100 mg QHS PO 04/25/21 21:00 05/01/21 20:03 Quetiapine Fumarate (SEROquel) 100 mg QHS PO 04/26/21 21:00 Cancel Trazodone HCl (Desyrel) 50 mg QHSP PRN PO INSOMNIA 04/25/21 19:00 04/30/21 14:40 DC 04/29/21 20:16 Allergies Coded Allergies: No Known Allergies (Unverified , 01/23/21) RENE TALBOT MD May 02, 2021 11:54
[2021-05-02 16:00] VITALS: BP 131/68
[2021-05-02] MEDS: DIVALPROEX 500MG *ER* TAB PO SCH (20:02)
[2021-05-02] MEDS: QUEtiapine FUMARATE 100 MG TAB PO SCH (20:02)
[2021-05-03 06:19] VITALS: BP 136/64
[2021-05-03] MEDS: NYSTATIN CREAM 15 GM TOP SCH ×2 (08:34→20:06)
[2021-05-03] MEDS: GABAPENTIN 400MG CAP PO SCH ×2 (08:34→20:06)
[2021-05-03] MEDS: ARIPiprazole 10 MG TAB PO SCH (08:34)
[2021-05-03] MEDS: ACETAMINOPHEN TAB 650MG DOSE (2X325MG) PO PRN ×2 (08:34→19:23)
--- NOTE | 2021-05-03 10:30 | MHIPNPDOC ---
[facility] Progress Note Progress Note DATE OF SERVICE: 05/03/21 HISTORY: Patient is a 26 -year-old , male, who reports past psychiatric history of PTSD, bipolar 2, personality disorder, does admission to [facility] in January 2021 per chart review, also reports admission to [facility], but refuses to provide a date because that would be providing too much information which she reported to [facility], but does not know why he was brought to the ER, per chart review was brought by MPs and EMS. On initial interview states "everybody here is watching me a second [employer] turns on to calm me down, I feel it squeeze in my groin". 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 There is 3 other Cody's who when advertise. I have a lot of wires and this is why I am told everything. Feeling everybody is watching me on the unit, and many other patients. 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 When reviewing psychiatric history and medications states he is done with the interview and that it is confidential. Currently does not answer questions about safety, thoughts of harming others is denied. Denies suicidal or homicidal ideation, or drug use. Per chart review from [facility] reach out to [facility], yesterday patient went to the [employer] [facility] and stated he was waiting for a ride, parked his vehicle there, then approached a guard and was acting bizarre, [facility] there he reported chest pain and called EMS himself, per chart review has a history of substance abuse and alcohol abuse and is enrolled in [facility] program. Had been drinking despite treatments and has received a DUI has been chaptered on the . Interval: Has been going to groups, no acute overnight events, appears less hypomanic, has been last active on the unit, no longer appears to be pacing the hallways. States that he notices feeling much calmer since the Depakote dose was increased. Denies acute side effects apart from some mild sedation in the morning. Agrees to continue medications and possible discharge early next week if continues to improve. In discussing how he mentioned having suicidal thoughts if dishonorably discharge states is the same as always always the same answer when I try to move to [place] and the feeling getting better and better. VITAL SIGNS: See below. NEW TEST RESULTS: none CURRENT MEDICATIONS: See below. MENTAL STATUS EXAMINATION: General Appearance: hospital scubs/clothing Build: thin Demeanor: Calm, very figety Eye Contact: Improved Activity: Less anxious Behavior: More cooperative, resistant Speech: clear, rapid, spontaneous Mood: "good" Affect: Somewhat elevated, less hypomanic Thought Process: Circumstantial Thought Content (Delusions): No delusions Thought Content (Other): No longer paranoid or disorganized Thought Content (Aggressive): none reported, reports suicidal ideation in context of possible discharge from the [employer] Perception (Hallucinations): Denies Perception (Other): illusions Cognition (Impairment of): attention/concentration Cognition(Intelligence Est.): average Oriented: Awake, Alert, Oriented times three Insight: fair Judgment: Fair Psychosis: Denies DIAGNOSES: Bipolar disorder, type II, recent episode hypomanic Rule out malingering or factitious disorder ASSESSMENT: Patient has extended stay due to recent report of suicidal ideation [employer] the [employer] and need for continued stability of mood and hypomanic symptoms with titration of Depakote and discontinuation of antidepressant Lexapro. Requires continued stay for continued stabilization and safe discharge plan. Appears more stable and calm after increasing Depakote exam release 2000 mg p.o. daily, agrees to continue on this regimen, denies any acute side effects apart from mild morning sedation, denies acute physical complaints. MANAGEMENT PLAN: Continue Depakote 1000 mg ER, has another Depakote level ordered in 2 days, Lexapro is discontinued, continue Abilify 10 mg daily. Continue Seroquel 100 mg nightly. Will need extended stay to improve stability. Likely discharge next Thursday, has a meeting for chaptering out of the [employer]. TIME SPENT: 20 minutes. Vital Signs Vital Signs Date Time Temp Pulse Resp B/P (MAP) Pulse Ox O2 Delivery O2 Flow Rate FiO2 05/03/21 06:19 97.9 71 14 136/64 (88) 98 Room Air Current Medications Current Medications Medications (Trade) Dose Ordered Sig/Jonny Route PRN Reason Start Time Stop Time Status Last Admin Dose Admin Acetaminophen (Tylenol Tab) 650 mg Q6HP PRN PO HEADACHE or MILD DISCOMFORT 04/25/21 19:00 05/03/21 08:34 Al Hydrox/Mg Hydrox/Simethicone (Mylanta) 30 ml Q4HP PRN PO HEARTBURN/INDIGESTION 04/25/21 19:00 Aripiprazole (AbiLIFY) 5 mg DAILY PO 04/26/21 09:00 04/29/21 09:09 DC 04/29/21 08:47 Aripiprazole (AbiLIFY) 10 mg DAILY PO 04/30/21 09:00 05/03/21 08:34 Aripiprazole (AbiLIFY) 10 mg QHS PO 04/26/21 21:00 04/29/21 09:09 DC 04/26/21 20:29 Divalproex Sodium (Depakote Er) 750 mg QHS PO 04/30/21 21:00 05/02/21 09:54 DC 05/01/21 20:03 Divalproex Sodium (Depakote Er) 1,000 mg QHS PO 05/02/21 21:00 05/02/21 20:02 Escitalopram Oxalate (Lexapro) 5 mg DAILY PO 05/01/21 09:00 05/01/21 11:27 DC 05/01/21 08:06 Escitalopram Oxalate (Lexapro) 10 mg DAILY PO 04/26/21 09:00 04/30/21 09:43 DC 04/30/21 08:23 Gabapentin (Neurontin) 400 mg BID PO 04/25/21 21:00 05/03/21 08:34 Gabapentin (Neurontin) 400 mg BID PO 04/26/21 21:00 UNV Home Med (Home Med List Complete!) ASDIRECTED XX 04/25/21 14:15 04/25/21 14:16 DC Magnesium Hydroxide (Milk Of Magnesia) 30 ml DAILYPRN PRN PO CONSTIPATION 04/25/21 19:00 Nystatin (Mycostatin) 1 dose BID TOP 04/29/21 12:00 05/03/21 08:34 Quetiapine Fumarate (SEROquel) 100 mg QHS PO 04/25/21 21:00 05/02/21 20:02 Quetiapine Fumarate (SEROquel) 100 mg QHS PO 04/26/21 21:00 Cancel Trazodone HCl (Desyrel) 50 mg QHSP PRN PO INSOMNIA 04/25/21 19:00 04/30/21 14:40 DC 04/29/21 20:16 Allergies Coded Allergies: No Known Allergies (Unverified , 01/23/21) RENE TALBOT MD May 03, 2021 10:30
[2021-05-03] MEDS: hydrOXYzine 50 MG TAB PO PRN (16:05)
[2021-05-03 16:12] VITALS: BP 138/81
--- NOTE | 2021-05-03 16:46 | IPNPDOC ---
Text Note Date of Service The patient was seen on 05/03/21. NOTE Subjective: Hospitalists were called for reconsult after the patient fell during group therapy. Patient states that he was sitting on a plastic chair and went to lean on what he thought was a stable cart however, the cart was on wheels. When he put his weight on the cart the cart started to roll away causing him to fall off the chair. Patient says he landed on his buttock and his thumb kind of got caught in the cart. Patient states he has a left thumb injury from prior to his admission which was slightly exacerbated however, he is able to move it in all directions. Patient is doing otherwise well and was able to walk around the unit without any difficulty following the fall. Patient denied any dizziness prior to the fall. Patient states that he does not have any pain or tenderness in his gluteal region. Physical exam: Vitals: See below General: Alert and oriented male patient was walking around the unit when I walked down. Patient was able to walk and sit down in the chair without any difficulty. Patient did not appear to be in any acute distress. HEENT: Normocephalic, atraumatic, moist mucous membranes. Cardiac: Regular rate and rhythm, no murmurs, normal S1, normal S2 Pulm: Clear to auscultation bilaterally. No wheezes, rhonchi, rales Ext: No edema bilateral lower extremities. There is no swelling around the thumb. Patient was in the move his thumb in all directions. There was some mild tenderness overlying the dorsal part of the MCP joint of the left thumb. Labs: See below Imaging: No imaging has been performed Assessment/plan: 26-year-old male who was admitted to the inpatient mental health unit for psychosis who fell earlier today causing a mild thumb injury 1. Fall. Patient had a mild thumb injury prior to the fall which he says caused injury to be slightly worse but it is not causing him really any pain unless he moves his thumb in a certain direction or it is manipulated. Patient is otherwise doing well at this time. DVT Prophylaxis: Early ambulation Disposition: Discharge per psychiatry. Please reconsult hospitalist if the need arises. VS,Fishbone, I+O VS, Fishbone, I+O Vital Signs Date Time Temp Pulse Resp B/P (MAP) Pulse Ox O2 Delivery O2 Flow Rate FiO2 05/03/21 16:12 97.6 86 18 138/81 (100) 100 Room Air DUANE RODRIGUEZ DO May 03, 2021 16:46
[2021-05-03] MEDS: DIVALPROEX 500MG *ER* TAB PO SCH (20:06)
[2021-05-03] MEDS: QUEtiapine FUMARATE 100 MG TAB PO SCH (20:06)
[2021-05-04 06:14] VITALS: BP 141/67
[2021-05-04] MEDS: hydrOXYzine 50 MG TAB PO PRN ×2 (07:46→14:02)
[2021-05-04] MEDS: ACETAMINOPHEN TAB 650MG DOSE (2X325MG) PO PRN ×2 (07:46→14:24)
[2021-05-04] MEDS: NYSTATIN CREAM 15 GM TOP SCH ×2 (07:46→20:09)
[2021-05-04] MEDS: GABAPENTIN 400MG CAP PO SCH ×2 (07:47→20:09)
[2021-05-04] MEDS: ARIPiprazole 10 MG TAB PO SCH (07:47)
[2021-05-04 16:29] VITALS: BP 132/68
[2021-05-04] MEDS: QUEtiapine FUMARATE 100 MG TAB PO SCH (20:09)
[2021-05-04] MEDS: DIVALPROEX 500MG *ER* TAB PO SCH (20:09)
[2021-05-05 05:59] VITALS: BP 129/65
[2021-05-05] MEDS: ACETAMINOPHEN TAB 650MG DOSE (2X325MG) PO PRN ×2 (08:10→16:55)
[2021-05-05] MEDS: ARIPiprazole 10 MG TAB PO SCH (08:10)
[2021-05-05] MEDS: GABAPENTIN 400MG CAP PO SCH ×2 (08:10→21:35)
[2021-05-05] MEDS: NYSTATIN CREAM 15 GM TOP SCH ×2 (08:10→21:00)
[2021-05-05 16:33] VITALS: BP 131/64
[2021-05-05] MEDS: DIVALPROEX 500MG *ER* TAB PO SCH (21:35)
[2021-05-05] MEDS: QUEtiapine FUMARATE 100 MG TAB PO SCH (21:35)
[2021-05-06 07:08] VITALS: BP 136/62
[2021-05-06] MEDS: NYSTATIN CREAM 15 GM TOP SCH ×2 (08:12→20:09)
[2021-05-06] MEDS: ARIPiprazole 10 MG TAB PO SCH (08:12)
[2021-05-06] MEDS: GABAPENTIN 400MG CAP PO SCH ×2 (08:12→20:09)
[2021-05-06] MEDS: ACETAMINOPHEN TAB 650MG DOSE (2X325MG) PO PRN ×2 (08:14→20:10)
--- NOTE | 2021-05-06 11:33 | MHIPNPDOC ---
[facility] Progress Note Progress Note DATE OF SERVICE: 05/06/21 HISTORY: Patient is a 26 -year-old , male, who reports past psychiatric history of PTSD, bipolar 2, personality disorder, does admission to [facility] in January 2021 per chart review, also reports admission to [facility], but refuses to provide a date because that would be providing too much information which she reported to [facility], but does not know why he was brought to the ER, per chart review was brought by MPs and EMS. On initial interview states "everybody here is watching me a second [employer] turns on to calm me down, I feel it squeeze in my groin". 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 There is 3 other Cody's who when advertise. I have a lot of wires and this is why I am told everything. Feeling everybody is watching me on the unit, and many other patients. I scott here" my friend Ester's house in the [employer] blocked the road, consider escalates driving by and I heard noises, I was just going there to tell her about my new book. When reviewing psychiatric history and medications states he is done with the interview and that it is confidential. Currently does not answer questions about safety, thoughts of harming others is denied. Denies suicidal or homicidal ideation, or drug use. Per chart review from [facility] reach out to [facility], yesterday patient went to the [employer] [facility] and stated he was waiting for a ride, parked his vehicle there, then approached a guard and was acting bizarre, [facility] picked him up and took him back to the [facility], there he reported chest pain and called EMS himself, per chart review has a history of substance abuse and alcohol abuse and is enrolled in [facility] program. Had been drinking despite treatments and has received a DUI has been chaptered on the . Interval: Charts reviewed, was seen in [facility] this morning and then individually in an interview room. Reports he has thoughts of going back to [place] and pursuing a career even if he is dishonorably discharged. States no longer having suicidal thoughts and has had time to process his thoughts over the weekend. Reports tolerating medications with reduced anxiety symptoms and improved sleep reports got 8 to 9 hours sleep last night. Mood is improved and even. Denies any acute physical complaints. Denies any medication side effects. VITAL SIGNS: See below. NEW TEST RESULTS: Depakote level of 106, borderline elevated, patient denying any excessive sedation, or side effects from medication CURRENT MEDICATIONS: See below. MENTAL STATUS EXAMINATION: General Appearance: hospital scubs/clothing Build: thin Demeanor: Calm, less fidgety Eye Contact: Improved Activity: Less anxious Behavior: More cooperative, resistant Speech: clear, rapid, spontaneous Mood: "Not too bad, not too bad" Affect: Euthymic, mood congruent Thought Process: Circumstantial Thought Content (Delusions): No delusions Thought Content (Other): No longer paranoid or disorganized Thought Content (Aggressive): none reported, reports suicidal ideation in context of possible discharge from the [employer] Perception (Hallucinations): Denies Perception (Other): illusions Cognition (Impairment of): attention/concentration Cognition(Intelligence Est.): average Oriented: Awake, Alert, Oriented times three Insight: Improving Judgment: Improving Psychosis: Denies DIAGNOSES: Bipolar disorder, type II, recent episode hypomanic ASSESSMENT: Patient continues to have improved control of impulsive behavior in the social milieu, or even mood, agreeable to plan for possible discharge tomorrow so he can attend his chapter meeting. MANAGEMENT PLAN: Continue medications, no changes. Depakote level upper end of normal, borderline elevated at 106, patient denying any acute physical complaints or side effects from Depakote. Continue Depakote 1000 mg ER, should be evaluated outpatient for dose adjustments if he develops any side effects. Continue Seroquel 100 mg nightly. Will need extended stay to improve stability. Likely discharge next tomorrow, has a meeting for chaptering out of the [employer]. TIME SPENT: 15 minutes. Vital Signs Vital Signs Date Time Temp Pulse Resp B/P (MAP) Pulse Ox O2 Delivery O2 Flow Rate FiO2 05/06/21 07:08 98.4 78 16 136/62 (86) 100 Room Air Current Medications Current Medications Medications (Trade) Dose Ordered Sig/Jonny Route PRN Reason Start Time Stop Time Status Last Admin Dose Admin Acetaminophen (Tylenol Tab) 650 mg Q6HP PRN PO HEADACHE or MILD DISCOMFORT 04/25/21 19:00 05/06/21 08:14 Al Hydrox/Mg Hydrox/Simethicone (Mylanta) 30 ml Q4HP PRN PO HEARTBURN/INDIGESTION 04/25/21 19:00 Aripiprazole (AbiLIFY) 5 mg DAILY PO 04/26/21 09:00 04/29/21 09:09 DC 04/29/21 08:47 Aripiprazole (AbiLIFY) 10 mg DAILY PO 04/30/21 09:00 05/06/21 08:12 Aripiprazole (AbiLIFY) 10 mg QHS PO 04/26/21 21:00 04/29/21 09:09 DC 04/26/21 20:29 Divalproex Sodium (Depakote Er) 750 mg QHS PO 04/30/21 21:00 05/02/21 09:54 DC 05/01/21 20:03 Divalproex Sodium (Depakote Er) 1,000 mg QHS PO 05/02/21 21:00 05/05/21 21:35 Escitalopram Oxalate (Lexapro) 5 mg DAILY PO 05/01/21 09:00 05/01/21 11:27 DC 05/01/21 08:06 Escitalopram Oxalate (Lexapro) 10 mg DAILY PO 04/26/21 09:00 04/30/21 09:43 DC 04/30/21 08:23 Gabapentin (Neurontin) 400 mg BID PO 04/25/21 21:00 05/06/21 08:12 Gabapentin (Neurontin) 400 mg BID PO 04/26/21 21:00 UNV Home Med (Home Med List Complete!) ASDIRECTED XX 04/25/21 14:15 04/25/21 14:16 DC Hydroxyzine HCl (Atarax) 50 mg Q6HP PRN PO ANXIETY/AGITATION 05/03/21 15:40 05/04/21 14:02 Magnesium Hydroxide (Milk Of Magnesia) 30 ml DAILYPRN PRN PO CONSTIPATION 04/25/21 19:00 Nystatin (Mycostatin) 1 dose BID TOP 04/29/21 12:00 05/06/21 08:12 Quetiapine Fumarate (SEROquel) 100 mg QHS PO 04/25/21 21:00 05/05/21 21:35 Quetiapine Fumarate (SEROquel) 100 mg QHS PO 04/26/21 21:00 Cancel Trazodone HCl (Desyrel) 50 mg QHSP PRN PO INSOMNIA 04/25/21 19:00 04/30/21 14:40 DC 04/29/21 20:16 Allergies Coded Allergies: No Known Allergies (Unverified , 01/23/21) RENE TALBOT MD May 06, 2021 11:33
[2021-05-06] MEDS: hydrOXYzine 50 MG TAB PO PRN ×2 (12:24→18:24)
[2021-05-06 17:39] VITALS: BP 128/74
[2021-05-06] MEDS: DIVALPROEX 500MG *ER* TAB PO SCH (20:09)
[2021-05-06] MEDS: QUEtiapine FUMARATE 100 MG TAB PO SCH (20:10)
[2021-05-07 06:00] VITALS: BP 124/68
[2021-05-07] MEDS ORDERED: SERO1TAB PO ×2 (07:27→09:15)
[2021-05-07] MEDS ORDERED: DEPA500T2 PO ×2 (07:27→09:15)
[2021-05-07] MEDS ORDERED: NYST10CR TOP (07:27)
[2021-05-07] MEDS ORDERED: HYDR50TA70 PO ×2 (07:27→09:15)
[2021-05-07] MEDS ORDERED: ABIL10TA9 PO ×2 (07:27→09:15)
[2021-05-07] MEDS: NYSTATIN CREAM 15 GM TOP SCH (08:17)
[2021-05-07] MEDS: GABAPENTIN 400MG CAP PO SCH (08:17)
[2021-05-07] MEDS: ARIPiprazole 10 MG TAB PO SCH (08:17)
[2021-05-07] MEDS: ACETAMINOPHEN TAB 650MG DOSE (2X325MG) PO PRN (08:18)
--- NOTE | 2021-05-07 12:00 | MHDSPDOC ---
[facility] Discharge Summary Discharge Summary DATE OF ADMISSION: Apr 25, 2021 at 18:57 DATE OF DISCHARGE: May 07, 2021 at 11:14 Discharge diagnoses: Bipolar disorder, type II, recent episode hypomanic Reason for admission: Patient is a 26 -year-old , male, who reports past psychiatric history of PTSD, bipolar 2, personality disorder, does admission to [place] in January 2021 per chart review, also reports admission to [place], but refuses to provide a date because that would be providing too much information which she reported to [facility], but does not know why he was brought to the ER, per chart review was brought by MPs and EMS. On initial interview states "everybody here is watching me a second [employer] turns on to calm me down, I feel it squeeze in my groin". 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 There is 3 other Cody's who when advertise. I have a lot of wires and this is why I am told everything. Feeling everybody is watching me on the unit, and many other patients. I scott here" my friend Ester's house in the [employer] blocked the road, consider escalates driving by and I heard noises, I was just going there to tell her about my new book. When reviewing psychiatric history and medications states he is done with the interview and that it is confidential. Currently does not answer questions about safety, thoughts of harming others is denied. Denies suicidal or homicidal ideation, or drug use. Per chart review from [facility] reach out to [facility], yesterday patient went to the [employer] gait and stated he was waiting for a ride, parked his vehicle there, then approached a guard and was acting bizarre, [facility] picked him up and took him back to the [place], there he reported chest pain and called EMS himself, per chart review has a history of substance abuse and alcohol abuse and is enrolled in [facility] program. Had been drinking despite treatments and has received a DUI has been chaptered on the . Vital signs: See below Consultants involved: See medical H&P by hospitalist Treatment and progress on the unit: Patient was admitted to the [facility] on a 9.39 legal status and was afforded the following treatment modalities: 1. Individual therapy 2. Group therapy 3. Medication management 4. Milieu therapy 5. Safe environment Hospital course: Patient was admitted to the [facility] on a legal status. Was medically cleared prior to coming up to the [facility]. Patient initially presented with bizarre behavior, elevated and labile mood, was pacing around the hallways and preaching with the Bible. Due to agitation was given IM Haldol 5 mg, diphenhydramine 50 mg and lorazepam 2 mg April 25 on admission. During stay was continued on Lexapro 10 mg p.o. daily which was eventually discontinued due to mid manic behavior and was started on Abilify which was titrated up to 10 mg daily and valproic acid 750 mg extended release which was titrated up to 1000 mg for mood lability after obtaining valproic acid levels, determined to be at the higher end of normal to borderline elevated. Patient denied any severe side effects including oversedation, had improved cognition on medications with improved attention and concentration, sleep is improved and reported 8 hours per night at least in the days prior to discharge. Patient was more re-directable, had reduced symptoms of hypomania and was calm on interview with even mood. 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 Was agreeable to taking medications, denied acute physical complaints. Patient found medications beneficial and tolerated them well. Prior to discharge denies mood, anxiety and intrusive thoughts which had previously improved with treatment. Patient attended groups daily during stay. Patient symptoms improved with treatment. On day of discharge patient denied depression, anxiety, insomnia, suicidal or homicidal ideations intent or plan, hallucinations, delusions. Patient was discharged to [facility] with follow-up. Patient felt safe for discharge. Was offered continued stay voluntary admission but refused. Discharge assessment: On today's interview patient is alert and oriented, dressed appropriately. Hygiene and grooming is well-kept. Eye contact is significantly improved. Smiles on approach and is pleasant and engaged on interview. Denies depression and anxiety. Denies suicidal homicidal ideation, intent or planning. Denies and is not observed with regina or psychotic symptoms of delusions, hallucinations, bizarre thinking, obsessions, paranoia, ru minations, illogical thoughts, flight of ideas or having poor insight or judgment. Patient has normal mentation, declines further hospitalization on a voluntary status and meets criteria for discharge today, patient encouraged to return the hospital if symptoms worsen or change and encouraged to call unit if they feel they need provider's questions to be answered or help with medications or care. Mental status: General Appearance: good hygiene, appears stated age, good eye contact, p leasant and cooperative, future oriented, in hospital clothing Build: thin Demeanor: Calm, pleasant Eye Contact: Improved Activity: Less anxious Behavior: More cooperative, resistant Speech: clear, rapid, spontaneous Mood: "Doing good doc, good nervous" Affect: Euthymic, mood congruent, appropriate, smiles and laughs appropriately Thought Process: Circumstantial Thought Content (Delusions): No delusions Thought Content (Other): No longer paranoid or disorganized Thought Content (Aggressive): none reported, no longer endorses suicidal ideation in context possible discharge from the [employer] Perception (Hallucinations): Denies Perception (Other): Denies Cognition (Impairment of): None Cognition(Intelligence Est.): average Oriented: Awake, Alert, Oriented times three Insight: Good Judgment: Fair Psychosis: Denies Medications on discharge: -see medication reconciliation CSSRS on discharge: Wish to be : No nonspecific active suicidal thoughts: No lifetime attempts: 0 interrupted attempts: 0 aborted attempts: 0 preparatory acts or behavior: None Taking into consideration safety state, status, modifiable, non-modifiable risk factors patient is at low risk on discharge for suicide according to [facility] suicide evaluation. PLAN/FOLLOWUP ARRANGEMENTS: Follow Up Care Education Label * Mental Health Appt 1 * Additional information BEHAVIORAL HEALTH CL/DRUM1 JUMA GOFF [id number] FTR/60 PENDING BEHAVIORAL HEALTH CL/DRUM1 VÍCTOR NIEVES [id number]@1000 FTR/60 PENDING SUD[facility]/DRUM1 DINH SIERRA [id number]@1230 FTR/60 PENDING BEHAVIORAL HEALTH CL/DRUM1 VÍCTOR NIEVES [id number]@1100 FTR/60 PENDING BEHAVIORAL HEALTH CL/DRUM1 NIEVESVÍCTOR OLMOS [id number]@0900 FTR/60 PENDING BEHAVIORAL HEALTH CL/DRUM1 NIEVESVÍCTOR [id number]@1300 FTR/60 PENDING BEHAVIORAL HEALTH CL/DRUM1 VÍCTOR NIEVES [id number]@1100 FTR/60 PENDING BEHAVIORAL HEALTH CL/DRUM1 MELANIE MCCARTY [id number]@1015 FTR/30 PENDING Follow Up Care Education Label * Smoking Cessation * Smoking Cessation [facility] Smoking Cessation The amount of time spent in the coordination of care for this patient was approximately 40 minutes. ETOH/Disorder Med Rx ETOH/DRUG DISORDER RX: Offrd @ d/c & pt refused Vital Signs/I&Os Vital Signs Date Time Temp Pulse Resp B/P (MAP) Pulse Ox O2 Delivery O2 Flow Rate FiO2 05/07/21 06:00 97.2 115 18 124/68 (86) 05/06/21 07:08 100 Room Air Medications Scheduled Aripiprazole (Abilify) 10 Mg Tablet, 10 MG PO DAILY for regina, #7 Divalproex Sodium (Depakote ER) 500 Mg Tab.er.24h, 1,000 MG PO QHS for regina, #14 Gabapentin (Gabapentin) 400 Mg Capsule, 400 MG PO BID, (Reported) Nystatin (Nystatin) 15 Gm Cream..g., 1 DOSE TOP BID for infection, #15 Quetiapine Fumarate (Seroquel) 100 Mg Tablet, 100 MG PO QHS for insomnia, #7 Scheduled PRN Hydroxyzine HCl (Hydroxyzine HCl) 50 Mg Tablet, 50 MG PO Q6HP PRN for ANXIETY/AGITATION, #7 Allergies Coded Allergies: No Known Allergies (Unverified , 01/23/21) RENE TALBOT MD May 07, 2021 12:00
== END 2021-05-07 11:14 | disposition home or self-care (01) | DRG 885 ==
LOC: M ED 03:33 → M ED INP 18:57 → M PSY 20:31
PROVIDERS: ADMIT Psychiatry & Neurology Psychiatry; ATTEND Student in an Organized Health Care Education/Training Program
DX: F31.81 Bipolar II disorder (principal); R45.851 Suicidal ideations; Z81.1 Family history of alcohol abuse and dependence; Z62.810 Personal history of physical and sexual abuse in childhood; Z20.822 Contact with and (suspected) exposure to COVID-19; Z79.899 Other long term (current) drug therapy

== ENCOUNTER 2021-05-07 13:29 | Emergency (ER) | payer OTHER ==
[~2021-05-07 13:29] MED LIST changes: +ABIL10TA9 PO; +DEPA500T2 PO; +GABA-283 PO; +HYDR50TA70 PO; +LEXA1TAB PO; +NYST10CR TOP; +SERO1TAB PO
== END 2021-05-07 13:49 | disposition left against medical advice (07) ==
LOC: M ED 13:29
DX: R41.82 Altered mental status, unspecified (principal)

== ENCOUNTER 2021-05-17 18:23 | Inpatient (IN) | payer OTHER ==
[~2021-05-17] VITALS: Ht 172.7 cm; Wt 63.2 kg
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
[2021-05-17 19:50] LABS: HEMATOCRIT 41.4 % (42.0-52.0); HEMOGLOBIN 13.9 g/dl (13.5-17.5); MEAN CORPUSCULAR HGB CONC 33.6 g/dl (32.0-36.5); MEAN CORPUSCULAR VOLUME 95.4 fl (80.0-96.0); PLATELET COUNT, AUTOMATED 206 10^3/uL (150-450); RED BLOOD COUNT 4.34 10^6/uL (4.30-6.10); WHITE BLOOD COUNT 5.8 10^3/uL (4.0-10.0)
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
[2021-05-17 20:13] LABS: AMPHETAMINES LEVEL URINE NEGATIVE (NEGATIVE); BARBITURATES URINE NEGATIVE (NEGATIVE); BENZODIAZEPINES URINE NEGATIVE (NEGATIVE); CANNABINOIDS URINE NEGATIVE (NEGATIVE); COCAINE METABOLITE URINE NEGATIVE (NEGATIVE); METHADONE URINE NEGATIVE (NEGATIVE); OPIATES URINE NEGATIVE (NEGATIVE); PHENCYCLIDINE URINE NEGATIVE (NEGATIVE)
[2021-05-17 20:23] LABS: ACETAMINOPHEN LEVEL < 2.0 UG/ML (10.0-30.0); ALBUMIN 4.4 GM/DL (3.2-5.2); ALT/SGPT 64 U/L (12-78); BILIRUBIN,DIRECT 0.2 MG/DL (0.0-0.2); BILIRUBIN,TOTAL 0.9 MG/DL (0.2-1.0); BLOOD UREA NITROGEN 22 MG/DL (7-18); CALCIUM LEVEL 8.9 MG/DL (8.5-10.1); CARBON DIOXIDE LEVEL 16 MEQ/L (21-32); CHLORIDE LEVEL 104 MEQ/L (98-107); CREATININE FOR GFR 0.98 MG/DL (0.70-1.30); ETHYL ALCOHOL (ETHANOL) < 0.003 % (0.000-0.010); GLOMERULAR FILTRATION RATE > 60.0 (>60); GLUCOSE, FASTING 82 MG/DL (70-100); POTASSIUM SERUM 4.1 MEQ/L (3.5-5.1); SALICYLATE LEVEL < 1.7 MG/DL (5.0-30.0); SODIUM LEVEL 138 MEQ/L (136-145); THYROID STIMULATING HORMONE 0.536 uIU/ML (0.358-3.740); TOTAL PROTEIN 7.9 GM/DL (6.4-8.2)
[2021-05-17 21:01] LABS: VENOUS BASE EXCESS -2.1 (-2.0-2.0); VENOUS HCO3 23.1 MEQ/L (23.0-27.0); VENOUS PH 7.368 UNITS (7.330-7.430); VENOUS STANDARD HCO3 22.7 MEQ/L; VENOUS TOTAL CO2 24.3 MEQ/L (24.0-28.0)
[2021-05-18] MEDS ORDERED: MOM 30ML SUSPENSION UDC PO PRN (02:20)
[2021-05-18] MEDS ORDERED: OLANZapine ORAL DISINTEGRATING TAB 5MG PO PRN (02:20)
[2021-05-18] MEDS ORDERED: NICOTINE 21MG/24HR 1 EA TRANSDERMAL TD PRN (02:20)
[2021-05-18] MEDS ORDERED: QUEtiapine FUMARATE 100 MG TAB PO ONE (02:20)
[2021-05-18] MEDS ORDERED: MAALOX 30 ML SUSP *UDC PO PRN (02:20)
[2021-05-18] MEDS ORDERED: traZODone 50 MG TAB PO PRN (02:20)
[2021-05-18] MEDS ORDERED: DIVA500T9 PO (02:37)
[2021-05-18] MEDS ORDERED: HYDR50TA70 PO (02:37)
[2021-05-18] MEDS ORDERED: SERO1TAB PO (02:37)
[2021-05-18] MEDS ORDERED: GABA-283 PO (02:37)
[2021-05-18] MEDS ORDERED: ABIL10TA9 PO (02:37)
[2021-05-18] MEDS ORDERED: MED REC COMMENT (02:40)
[2021-05-18] MEDS ORDERED: HOME MED LIST COMPLETE! XX SCH (02:40)
[2021-05-18 03:24] LABS: RSV AMPLIFICATION NEGATIVE (NEGATIVE)
[2021-05-18 03:40] VITALS: BP 134/73
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
--- NOTE | 2021-05-18 13:46 | HPE ---
HISTORY AND PHYSICAL DATE OF ADMISSION: 05/18/2021 CHIEF COMPLAINT: Deviated septum trouble breathing, admitted for bipolar disorder to the inpatient mental health unit. HISTORY OF PRESENT ILLNESS: A 26-year-old male with deviated nasal septum with blocked nose implant for rhinoplasty and correction of the deviated nasal septum in [place], posttraumatic stress disorder (PTSD), bipolar disorder, and personality disorder, admitted to the inpatient mental health unit due to bipolar disorder management. Patient says that he has been having some trouble breathing due to his deviated septum but does not want any ears, nose, and throat (ENT) referral here. He is already scheduled to have surgery in [place]. Patient otherwise has no other complaints. Denies any weight gain, weight loss, changes in appetite, bowel habits, fever, chills, chest pain, pressure, or tightness, dysuria, urgency, frequency, nausea, vomiting, diarrhea. Otherwise, 10-point review of systems is negative. MEDICAL HISTORY: 1. Deviated septum. 2. PTSD. 3. Bipolar disorder. 4. Personality disorder. PAST SURGICAL HISTORY: 1. Emma tooth extraction. 2. Nose implant. ALLERGIES: No known drug allergies. HOSPITAL MEDICATIONS: - Seroquel 100 every night - nicotine patch daily - Mylanta - milk of magnesia - Tylenol - Zyprexa - Desyrel SOCIAL HISTORY: He still smokes cigarettes. No alcohol or recreational drug use. Currently in rehabilitation for alcohol abuse. FAMILY HISTORY: Father with stomach cancer. Diabetes runs in the family. REVIEW OF SYSTEMS: Per history of present illness (HPI). A 12-point system otherwise negative. PHYSICAL EXAMINATION: Temperature 96.7, pulse 80, respiratory rate 18, blood pressure 134/73, 100% on room air. GENERAL: No distress. Awake, alert, oriented. No cyanosis, pallor, or icterus. No jugular venous distention (JVD) or thyromegaly. Patient has notable deviated septum but no stridor on exam. LUNGS: Clear to auscultation. No wheezing, rales, or rhonchi. HEART: S1, S2, sinus rhythm. ABDOMEN: Soft, nontender, nondistended. EXTREMITIES: No cyanosis, clubbing, or any pitting edema. LABORATORY DATA: Microbiology and imaging studies have been reviewed. ASSESSMENT AND PLAN: A 26-year-old with bipolar disorder, admitted to the inpatient mental health unit with complaints of trouble breathing due to his deviated septum and blocked nose implant. Patient is due to undergo reconstructive surgery and rhinoplasty in [place] and does not want any ENT referral during this admission. CURRENT ISSUES: 1. Bipolar disorder/PTSD/personality disorder, managed by primary psychiatric team. 2. Deviated nasal septum with blocked nose implant for rhinoplasty and correction as outpatient in [place]. Patient is refusing any ENT referral during this admission. Hospitalist will sign off. Please re-consult for any acute medical issues.
[2021-05-18 16:23] VITALS: BP 132/68
[2021-05-18] MEDS: QUEtiapine FUMARATE 100 MG TAB PO SCH (21:19)
[2021-05-19 06:33] VITALS: BP 139/63
[2021-05-19] MEDS: ARIPiprazole 10 MG TAB PO SCH (09:02)
[2021-05-19] MEDS: ACETAMINOPHEN TAB 650MG DOSE (2X325MG) PO PRN (13:39)
[2021-05-19 16:31] VITALS: BP 136/77
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
[2021-05-19] MEDS: DIVALPROEX 500MG *ER* TAB PO SCH (20:46)
[2021-05-19] MEDS: DIVALPROEX 250MG *ER* TAB PO SCH (20:46)
[2021-05-19] MEDS: QUEtiapine FUMARATE 100 MG TAB PO SCH (20:47)
[2021-05-19] MEDS: NYSTATIN 100,000 UNITS/GM TOPICAL PWD 15 GM TOP SCH (20:49)
[2021-05-20 06:32] VITALS: BP 126/72
[2021-05-20] MEDS: ARIPiprazole 10 MG TAB PO SCH (08:19)
[2021-05-20] MEDS: NYSTATIN 100,000 UNITS/GM TOPICAL PWD 15 GM TOP SCH ×2 (08:19→20:35)
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
[2021-05-20] MEDS: ACETAMINOPHEN TAB 650MG DOSE (2X325MG) PO PRN (11:52)
--- NOTE | 2021-05-20 13:07 | MHIPN ---
[facility] PROGRESS NOTE DATE: 05/19/2021 VITAL SIGNS: Blood pressure 139/63, pulse 68, temperature 97.7. This is a video assessment. He is seen in the inpatient unit in the presence of staff. I am at home. CHIEF COMPLAINT: Says feels okay. SUBJECTIVE: Seen for followup. Indicates feels okay and that he slept well. Suggests feels positive, as he is looking ahead. MENTAL STATUS EXAMINATION: Neat, cooperative. No agitation. No psychomotor retardation. Affect reactive though a bit restricted. Denies any suicidal thoughts or intents. Denies any thoughts of harming anyone else at present, though he is vague on this. Did not pursue thoughts of hurting the person he had mentioned. Has delusions, though they are not displayed overtly at present. Judgment and insight remain compromised. ASSESSMENT: Bipolar disorder, current episode regina with psychotic features. PLAN: We discussed options of increasing the dosage of one of the medicines, the mood stabilizers. Instead of Ability, which we spoke about yesterday, had suggested increasing the Depakote by 250 mg at night for a total of 1250 mg. Increasing the Abilify would also increase the potential risks of side effects, including tardive dyskinesia. Would get a valproic acid level done in about 5 days. The Abilify is to continue at 10 mg daily, I prescribed this for the daytime. He says he usually takes it at night but would wish to take it during the day, which is okay. He is also to continue the Seroquel at 100 mg at night. He is to be encouraged to participate in activities in the unit. He will be seeing the assigned clinician tomorrow, and further recommendations will be made.
[2021-05-20 17:51] VITALS: BP 132/76
[2021-05-20] MEDS: DIVALPROEX 250MG *ER* TAB PO SCH (20:34)
[2021-05-20] MEDS: QUEtiapine FUMARATE 100 MG TAB PO SCH (20:34)
[2021-05-20] MEDS: DIVALPROEX 500MG *ER* TAB PO SCH (20:34)
[2021-05-21 06:40] VITALS: BP 133/55
[2021-05-21] MEDS: ARIPiprazole 10 MG TAB PO SCH (09:08)
[2021-05-21] MEDS: NYSTATIN 100,000 UNITS/GM TOPICAL PWD 15 GM TOP SCH (09:08)
[2021-05-21] MEDS ORDERED: DEPA250T2 PO (11:13)
[2021-05-21] MEDS ORDERED: NICO21PAT TD (11:13)
[2021-05-21] MEDS: ACETAMINOPHEN TAB 650MG DOSE (2X325MG) PO PRN (11:38)
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
== END 2021-05-21 14:00 | disposition home or self-care (01) | DRG 885 ==
LOC: M ED 18:23 → M ED INP 05-18 02:16 → M PSY 05-18 03:40
PROVIDERS: ADMIT Psychiatry & Neurology Psychiatry; ATTEND Psychiatry & Neurology Psychiatry
DX: F33.3 Major depressive disorder, recurrent, severe with psychotic symptoms (principal); Z79.899 Other long term (current) drug therapy; F17.210 Nicotine dependence, cigarettes, uncomplicated; F43.10 Post-traumatic stress disorder, unspecified; J34.2 Deviated nasal septum